=== PATIENT | male | born 1940 | race Caucasian/White ===

== ENCOUNTER → 2017-03-22 | Outpatient (CLI) | payer OTHER, BC ==
[~2017-03-22] VITALS: Ht 167.6 cm; Wt 78.9 kg
[~2017-03-22] MED LIST: CLONAZEPAM 0.50.5 M1 PO; COZAAR 50 MG TA50 M2 PO; FENOFIBRATE40 MG PO; FLOMAX0.4 MG PO; LIPITOR40 MG PO; LOPRESSOR50 PO; UNICOMPLEX M TA1 TA1 PO
--- NOTE | ~2017-03-22 | P ---
[facility] [place] [address] PROCEDURE REPORT Name: LYSSA OLSON Room #: REG [facility]#: [id number] Admission: 03/22/17 Attend Phys: Collin Huizar Discharge: Date of : 42 Report #: [id number] THIS REPORT FOR: //name// CC: Collin Rader MD DATE OF SERVICE: 03/22/2017 PROCEDURE PERFORMED: Flexible sigmoidoscopy with biopsies and tattoo. HISTORY OF PRESENT ILLNESS: The patient is a 76-year-old male who was seen by myself in the office on 01/01/2017 with change in bowel movements, blood in his stools at time, intermittent abdominal pain. He had a colonoscopy reportedly in 2014 in which polyps were removed. Plan is for flexible sigmoidoscopy. DESCRIPTION OF PROCEDURE: The risks and benefits of the procedure were explained to the patient, those risks including but not limited to bleeding, perforation, the risk of sedation. He understood these risks and gave informed consent. Sedation was given using propofol per anesthesia. Next, a digital rectal exam was initially performed, which was normal. Next, other than small external hemorrhoids, otherwise normal. Next, using a standard Simpleshowinon colonoscope, the scope was placed in the patient's anus and advanced under direct vision into the sigmoid colon, at which point a malignant appearing mass was noted at 20 cm. I was not able to pass the scope through this area, it was near obstructing. Multiple biopsies were obtained. The edges of the mass were tattooed. Multiple diverticula were also noted in this area. The scope was then slowly withdrawn. The rectal mucosa was normal. On retroflexion, internal hemorrhoids were noted, otherwise normal. The scope was then withdrawn and the procedure terminated. The patient tolerated the procedure well. IMPRESSION: 1. Malignant appearing mass in the distal sigmoid colon at 20 cm. Biopsies obtained. 2. Diverticulosis. 3. Internal and external hemorrhoids. RECOMMENDATIONS: 1. Await biopsy results. 2. We will proceed with a CAT scan of the abdomen and pelvis. 3. We will consult Surgery for resection in the near future. [facility] [address] [place] [address] PROCEDURE REPORT Name: YUDI OLSONJEN Delgado Room #: REG Sigrid Barrientos#: [id number] Admission: 03/22/17 Attend Phys: Collin Huizar Discharge: Date of : 42 Report #: [id number] Thank you for allowing me to participate in his care. <ELECTRONICALLY SIGNED> By: Collin Prieto MD 03/23/17 1022 1107 0234 Collin Prieto MD /nt
--- NOTE | ~2017-03-22 | S ---
[facility] [place] [address] SURGICAL PATH RPT PROCEDURE Name: SELVIN SOLARES GENE Room #: REG KULDIP Cuevas.#: [id number] Admission: 03/22/17 Date of : 42 Discharge: Report #: [id number] Path Case #: [id number] PATHOLOGY REPORT COLLECTION DATE: 03/22/2017 RECEIVED DATE: 03/22/2017 SUBMITTING PHYS: Dr. Collin Prieto OTHER PHYS: ADDENDUM REPORT (Order Date: 03/27/2017 15:24) ADDENDUM COMMENT: Per the [facility] Cancer Committee Protocol, mismatch repair (MMR) protein immunohistochemical staining was performed. Specimen: Formalin fixed paraffin embedded tissue Specimen ID: [id number], block A1 Reason for testing: To evaluate for evidence of defective mismatch repair proteins. Method: Immunohistochemical staining for the presence or absence of protein expression of one or more of the following MMR protein markers: MLH1, MSH2, MSH6 and PMS2. Tumor type: Invasive adenocarcinoma, moderately differentiated Results: MLH1 - Preserved MSH2 - Preserved MSH6 - Preserved PMS2 - Preserved Mismatch Repair Status: MMR Proficient (MMR-P) Interpretation: (MMR-P) All four MMR proteins are preserved within tumor cells. This suggests the presence of normal DNA mismatch repair function within the tumor and an observable defect in mismatch repair is not identified. The likelihood that this patient has an inherited germline mutation syndrome due to defective mismatch repair is reduced but not totally eliminated. If the patient has a strong personal or family history of HPNCC/Castaneda syndrome related cancers (colorectal, endometrial, gastric, ovarian, pancreatic, ureter/renal pelvis, biliary tract, brain, small bowel and [place] F syndrome), consider MSI testing by PCR methodology. Suggest clinical correlation and follow up. These test results are designed for screening purposes only and are useful tools in identifying cancer patients that are more likely to have Castaneda Syndrome related diagnoses. Tests should be interpreted in the context of clinical findings, family history and laboratory data. Abnormal IHC results for MMR protein expression are not considered diagnostic for Castaneda Syndrome. (ERASMOW:; 03/27/2017) [facility] [address] [place] [address] SURGICAL PATH RPT PROCEDURE Name: SEVLIN SOLARES GENE Room #: REG KULDIP Barrientos#: [id number] Admission: 03/22/17 Date of : 42 Discharge: Report #: [id number] Path Case #: [id number] Professional services performed by [facility] at [address] [place], [place] [address] Technical services performed by [facility] at [address] [place] [address], [address] [place] [address]. ELECTRONICALLY SIGNED BY: Treva Pagan M.D. DATE/TIME:03/28/2017 14:16 SPECIMEN(S) RECEIVED: A.Colon mass * * * * * * * * * * * * FINAL DIAGNOSIS: "Colon mass," biopsy: - INVASIVE ADENOCARCINOMA, MODERATELY DIFFERENTIATED. (SEE COMMENT) COMMENT: Deeper sections are performed. The case is co-reviewed with Dr. Maninder Hoyt. The case is discussed with Freida, nurse with Dr. Collin Prieto, on 03/25/17 at approximately 1:15 PM. (CLW:; 03/25/2017) PATHOLOGIST: Treva Pagan M.D. REPORT ELECTRONICALLY SIGNED BY: Treva Pagan M.D. DATE/TIME: 03/26/2017 13:19 * * * * * * * * * * * * GROSS PATHOLOGY: Received in formalin labeled "Selvin Solares BX of colon mass," are 3 segments of chi soft tissue measuring 1.2 x 0.4 x 0.3 cm in aggregate dimensions and ranging from 0.3 to 0.5 cm in maximum dimension. The specimen is submitted entirely in cassette A1. (TSD; 03/22/2017) CLINICAL HISTORY: Change in bowel habits, blood in stools INITIAL CPT CODE(S): A; 96180, 89821, 86578, 12416, 54883 Professional services performed by [facility] [address], [place], [place] [address] [place] [address] SURGICAL PATH RPT PROCEDURE Name: SELVIN SOLARES GENE Room #: REG KULDIP Barrientos#: [id number] Admission: 03/22/17 Date of : 42 Discharge: Report #: [id number] Path Case #: [id number] Technical services performed by [facility] at [address] [place] [address], [address], [place] [address]. [facility] [address] [place] [address] PHONE: [phone] DIRECTOR: Jason Bro M.D. * * * END OF REPORT * * *
== END | disposition home or self-care (01) ==
LOC: GI 07:11
DX: C18.9 Malignant neoplasm of colon, unspecified (principal); K64.4 Residual hemorrhoidal skin tags; K57.30 Diverticulosis of large intestine without perforation or abscess without bleeding; K64.8 Other hemorrhoids
CPT/HCPCS: 62110; 62900

== ENCOUNTER → 2017-03-26 | Outpatient (CLI) | payer OTHER, BC ==
[2017-03-26 09:41] LABS: CREATININE 0.9 mg/dL (0.7-1.3)
== END ==
LOC: CAT 09:01
PROVIDERS: Specialist
DX: K76.0 Fatty (change of) liver, not elsewhere classified (principal); K63.89 Other specified diseases of intestine; I77.811 Abdominal aortic ectasia

== ENCOUNTER → 2017-08-27 | Outpatient (CLI) | payer OTHER, BC ==
[~2017-08-27] MED LIST changes: +ASPIRIN325 PO; +HYDROCODON-ACE1 EAC7 PO; +NEURONTIN 300300 M1 PO; +PERCOCET PO; +SENOKOT-S1 TA2 PO
== END ==
LOC: RAD 07:39
DX: Z93.3 Colostomy status (principal)

== ENCOUNTER → 2018-04-01 | Outpatient (CLI) | payer OTHER, BC | LOC: ULTRA 09:41 | DX: I70.201 Unspecified atherosclerosis of native arteries of extremities, right leg (principal); I10 Essential (primary) hypertension; E78.5 Hyperlipidemia, unspecified ==

== ENCOUNTER 2018-06-26 05:44 | Inpatient (IN) | payer OTHER, BC ==
[2018-06-12 09:26] LABS: URINE BILIRUBIN NEGATIVE (Negative); URINE BLOOD TRACE (Negative); URINE CLARITY CLEAR; URINE COLOR YELLOW; URINE GLUCOSE-RANDOM* NEGATIVE (Negative); URINE KETONES NEGATIVE (Negative); URINE LEUKOCYTES 2+ (Negative); URINE NITRITE NEGATIVE (Negative); URINE PROTEIN (DIPSTICK) NEGATIVE (Negative); URINE SPECIFIC GRAVITY <= 1.005 (1.005-1.035); URINE UROBILINOGEN 0.2 E.U./dl (0.2-1.0)
[2018-06-12 09:27] LABS: HEMATOCRIT 42.9 % (42.0-52.0); HEMOGLOBIN 13.8 gm/dL (14.0-18.0); MCH 23.8 pg (26.0-34.0); MCHC 32.3 g/dL (28.0-37.0); MCV 73.7 fL (80.0-100.0); PLATELET COUNT 235 thou/uL (150-400); RBC 5.82 mil/uL (4.50-6.00); RDW 18.1 % (10.5-14.5); WBC 8.4 thou/uL (4.0-11.0)
[2018-06-12 09:39] LABS: INR 1.1
[2018-06-12 09:41] LABS: SQUAMOUS 0-3 Few /LPF (0-3)
[2018-06-12 09:42] LABS: ALBUMIN 3.7 g/dL (3.4-5.0); BACTERIA 1-9 Few /HPF (None Seen); CALCIUM 9.4 mg/dL (8.5-10.1); CASTS None Seen /LPF (None Seen); CREATININE 0.9 mg/dL (0.7-1.3); CRYSTALS None Seen /LPF (None Seen); POTASSIUM 4.3 mmol/L (3.5-5.1); TOTAL BILIRUBIN 0.7 mg/dL (<0.1-1.0); TOTAL PROTEIN 7.8 g/dL (6.4-8.2); URINE RBC None Seen /HPF (0-2); URINE WBC 6-15 Few /HPF (0-5)
[2018-06-12 09:52] LABS: ABSOLUTE NEUTROPHILS 4.6 thou/uL (1.4-8.2); ANISOCYTOSIS 1+; MICROCYTES 1+; PLATELET ESTIMATE NORMAL
--- NOTE | 2018-06-12 16:44 | EKG ---
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 Architect: garcia : 1940 Requested By: Alvarez Bautista Order Number: [id number] MD: Anselmo Ocampo Measurements Intervals [place] Rate: 49 P: 7 PA: 198 QRS: 18 QRSD: 139 T: 10 QT: 468 QTc: 423 Interpretive Statements Sinus bradycardia Right bundle branch block Compared to ECG 03/10/2018 06:36:26 No significant change was found Electronically Signed On 06-12-2018 16:44:25 SENIOR BIOINFORMATICS SCIENTIST by Anselmo Ocampo [email or web address] <ELECTRONICALLY SIGNED> By: Anselmo Ocampo MD, [facility] 06/12/18 1644 0929 8 Anselmo Ocampo MD, FACC /EPI
[~2018-06-26] VITALS: Ht 170.2 cm; Wt 83.5 kg
[~2018-06-26 05:44] MED LIST changes: +LUTEIN20 MG PO; +METAMUCIL1 EAC1 PO
[2018-07-11 09:50] LABS: HEMATOCRIT 43.6 % (42.0-52.0); HEMOGLOBIN 14.4 gm/dL (14.0-18.0); MCH 24.6 pg (26.0-34.0); MCV 74.5 fL (80.0-100.0); PLATELET COUNT 201 thou/uL (150-400); RBC 5.85 mil/uL (4.50-6.00); RDW 18.3 % (10.5-14.5); WBC 8.4 thou/uL (4.0-11.0)
[2018-07-11 10:04] LABS: URINE CLARITY CLEAR; URINE COLOR YELLOW; URINE SPECIFIC GRAVITY <= 1.005 (1.005-1.035)
[2018-07-11 10:04] LABS: ALBUMIN 3.6 g/dL (3.4-5.0); APTT 28.7 Seconds (24.5-32.8); CALCIUM 9.8 mg/dL (8.5-10.1); CREATININE 0.9 mg/dL (0.7-1.3); PROTIME 10.7 Seconds (9.3-11.4); TOTAL BILIRUBIN 0.6 mg/dL (<0.1-1.0); TOTAL PROTEIN 7.5 g/dL (6.4-8.2)
[2018-07-11 10:05] LABS: URINE BILIRUBIN NEGATIVE (Negative); URINE BLOOD NEGATIVE (Negative); URINE GLUCOSE-RANDOM* NEGATIVE (Negative); URINE KETONES NEGATIVE (Negative); URINE LEUKOCYTES-REFLEX NEGATIVE (Negative); URINE NITRITE-REFLEX NEGATIVE (Negative); URINE PROTEIN (DIPSTICK) NEGATIVE (Negative); URINE UROBILINOGEN 0.2 E.U./dl (0.2-1.0)
[2018-07-11 10:23] LABS: ABSOLUTE NEUTROPHILS 4.3 thou/uL (1.4-8.2); ANISOCYTOSIS 2+
--- NOTE | 2018-07-11 13:40 | EKG ---
[place] [address] [facility] [place] [address] ELECTROCARDIOGRAM REPORT Name: LYSSA OLSON [facility] Room #: PRE IN ..#: [id number] Admission: Attend Phys: Alvarez Bautista MD Discharge: Date of : 42 Report #: [id number] THIS REPORT FOR: //name// [facility] Test Date: 2018-07-11 Test Time: 10:02:05 Pat Name: LYSSA OLSON Department: Room: Gender: M Physical Therapy Professor: IKE ROGEL : 1940 Requested By: Alvarez Bautista Order Number: [id number] MD: Sigifredo Plata Measurements Intervals [place] Rate: 49 P: 4 [place]: 198 QRS: 3 QRSD: 150 T: 31 QT: 472 QTc: 427 Interpretive Statements Sinus bradycardia Right bundle branch block Baseline wander in lead(s) V3 Compared to ECG 06/12/2018 09:29:58 No significant changes Electronically Signed On 07-11-2018 13:40:34 PRESS ASSISTANT by Sigifredo Plata [email or web address] <ELECTRONICALLY SIGNED> By: Sigifredo Plata MD 07/11/18 1340 1002 1002 Sigifredo Plata MD /GEE
[2018-07-24] VITALS (27 sets, daily range): BP systolic 99–146; BP diastolic 44–108
[2018-07-25] VITALS (30 sets, daily range): BP systolic 102–155; BP diastolic 56–107
[2018-07-25 05:23] LABS: HEMATOCRIT 39.5 % (42.0-52.0); HEMOGLOBIN 12.6 gm/dL (14.0-18.0); MCH 23.7 pg (26.0-34.0); MCHC 31.8 g/dL (28.0-37.0); MCV 74.5 fL (80.0-100.0); RBC 5.31 mil/uL (4.50-6.00); RDW 17.5 % (10.5-14.5); WBC 15.9 thou/uL (4.0-11.0)
[2018-07-25 05:56] LABS: CREATININE 1.1 mg/dL (0.7-1.3); POTASSIUM 4.3 mmol/L (3.5-5.1)
--- NOTE | 2018-07-25 08:30 | O ---
[facility] [place] [address] OPERATIVE REPORT Name: LYSSA OLSON [facility] Room #: 246-P ADM IN M.R.#: [id number] Admission: 07/24/18 Attend Phys: Alvarez Bautista MD Discharge: Date of : 42 Report #: [id number] THIS REPORT FOR: //name// CC: Alvarez Rader DATE OF SERVICE: 07/24/2018 PREOPERATIVE DIAGNOSIS: Aortoiliac and iliofemoral occlusive disease. POSTOPERATIVE DIAGNOSIS: Aortoiliac and iliofemoral occlusive disease. OPERATION: Axillobifemoral bypass with right femoral endarterectomy. SURGEON: Alvarez Bautista MD. ANESTHESIA: General. INDICATIONS: The patient was sent to us by Dr. Villa. The patient has important lower extremity claudication (right worse than left) and severe aortoiliac occlusive disease. 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 FINDINGS AND TECHNIQUE: After general anesthesia was established, an incision was made below the right clavicle to expose the axillary artery. A separate incision was made in the right groin to expose the common deep and superficial femoral artery. A similar incision was performed on the left to expose the common deep and superficial femoral arteries. Tunnels were made between all of the incisions and then 10,000 units of heparin were given. An 8-mm PTFE axillobifemoral bypass graft was brought through the right axillary to groin tunnel and sewn in end-to-side fashion to the axillary artery. This anastomosis was tested and found to be satisfactory. The right femoral system including common deep and superficial femoral were severely calcified and I felt that the only way to make an anastomosis into it was to perform an endarterectomy. As such, a right common femoral endarterectomy was performed extending down into the profunda and superficial femoral arteries. These vessels were severely calcified and it was difficult to end the endarterectomy as the plaque seemed to extend indefinitely. A long arteriotomy was made for the endarterectomy and a long patch graft was [facility] [address] [place] [address] OPERATIVE REPORT Name: LYSSA OLSON [facility] Room #: 246-P ADM IN M.R.#: [id number] Admission: 07/24/18 Attend Phys: Alvarez Bautista MD Discharge: Date of : 42 Report #: [id number] used to close it. Flow was established through this limb of the graft and the other limb of the graft had been brought through the cross femoral tunnel. There was a nice soft area in the proximal deep femoral artery and this was used as our recipient site on the left. With flow established through all the bypass grafts, all of the anastomoses looked reasonable and hemostasis was satisfactory at this point of the operation. Protamine was given to reverse the heparin that was given at the outset and when hemostasis was satisfactory, the wounds were closed in layers. The patient was taken to the recovery area in satisfactory condition. Feet were pink at this point and distal Doppler signals were present. All counts reported as correct. <ELECTRONICALLY SIGNED> By: Alvarez Bautista MD 07/25/18 0830 1717 1749 Alvarez Bautista MD /nt
--- NOTE | 2018-07-25 18:06 | PATH ---
[facility] [address] [place] [address] PATHOLOGY RPT PROCEDURE Name: SELVIN SOLARES GENE Room #: 211-P [facility] IN M.R.#: [id number] Admission: 07/24/18 Date of : 42 Discharge: Report #: [id number] Path Case #: [id number] [facility] Accession Number: [id number] . 01 Material submitted: . RIGHT FEMORAL PLAQUE . 01 Clinical history: . PVD. . 02 Diagnosis: Right femoral plaque, femoral endarterectomy: - Calcified atherosclerotic plaque. . (IUV:mml; 07/25/2018) QLM/07/25/2018 . 02 Electronically signed: . Cristy Mathur MD, Pathologist NPI- [id number] . 01 Gross description: . Received in formalin labeled "Selvin Solares, right femoral plaque" is a 4.5 x 3.5 x 1.0 cm aggregate of chi-white rubbery and chi-yellow calcified soft tissue fragments. Approximately 95% of the specimen is comprised of calcification. Pre Press Manager sections are submitted in cassette A1 following decalcification. ([facility]; 07/24/2018) SYC/SYC . 02 Pathologist provided ICD-10: I70.201 . 02 CPT . [id number], [id number] Specimen Comment: A courtesy copy of this report has been sent to Specimen Comment: [phone], . Specimen Comment: Report sent to / DR LOPEZ Performed at: [address], [place], [place] [id number] MD Yamil Butt MD Phone: [phone] Performed at: [address] [id number] MD Cristy Mathur MD Phone: [phone]
[2018-07-26 00:15] VITALS: BP 117/61
[2018-07-26 04:30] VITALS: BP 112/58
[2018-07-26 08:05] VITALS: BP 122/66
[2018-07-26 09:28] LABS: HEMATOCRIT 36.8 % (42.0-52.0); HEMOGLOBIN 11.9 gm/dL (14.0-18.0); MCH 24.2 pg (26.0-34.0); MCHC 32.3 g/dL (28.0-37.0); MCV 74.9 fL (80.0-100.0); RBC 4.92 mil/uL (4.50-6.00); RDW 18.3 % (10.5-14.5); WBC 16.2 thou/uL (4.0-11.0)
[2018-07-26 09:35] LABS: CALCIUM 8.9 mg/dL (8.5-10.1); CREATININE 0.9 mg/dL (0.7-1.3); POTASSIUM 3.7 mmol/L (3.5-5.1)
[2018-07-26 11:40] VITALS: BP 138/57
[2018-07-26 16:40] VITALS: BP 122/66
[2018-07-26 19:39] VITALS: BP 125/90
[2018-07-27 04:53] VITALS: BP 124/57
[2018-07-27 08:00] VITALS: BP 138/59
[2018-07-27 11:42] LABS: HEMATOCRIT 34.9 % (42.0-52.0); HEMOGLOBIN 11.1 gm/dL (14.0-18.0); MCH 23.7 pg (26.0-34.0); MCHC 31.8 g/dL (28.0-37.0); MCV 74.3 fL (80.0-100.0); RBC 4.7 mil/uL (4.50-6.00); WBC 11.2 thou/uL (4.0-11.0)
[2018-07-27 11:57] LABS: CALCIUM 8.5 mg/dL (8.5-10.1); CREATININE 0.8 mg/dL (0.7-1.3); POTASSIUM 3.7 mmol/L (3.5-5.1)
[2018-07-27 12:15] VITALS: BP 100/79
[2018-07-27 16:25] VITALS: BP 117/70
[2018-07-27 20:32] VITALS: BP 138/71
[2018-07-28 04:50] VITALS: BP 134/81
[2018-07-28 08:00] VITALS: BP 168/75
[2018-07-28 12:20] VITALS: BP 150/77
[2018-07-28 14:56] VITALS: BP 150/77
== END 2018-07-28 15:50 | disposition home or self-care (01) | DRG 253 ==
LOC: PRE 05:44 → TBA 07-24 05:17 → ICU 07-24 05:17 → PRE 07-24 05:41 → ICU 07-24 16:47 → 2N 07-25 12:35 → ENTRNSPT 07-28 15:24 → EDTRNSPTSTS 07-28 15:26 → 2N 07-28 15:50
PROVIDERS: Family Medicine; ADMIT Surgery Vascular Surgery
DX: I74.09 Other arterial embolism and thrombosis of abdominal aorta (principal); I74.3 Embolism and thrombosis of arteries of the lower extremities; I74.5 Embolism and thrombosis of iliac artery; I73.9 Peripheral vascular disease, unspecified; M19.90 Unspecified osteoarthritis, unspecified site; I25.10 Atherosclerotic heart disease of native coronary artery without angina pectoris; Z79.899 Other long term (current) drug therapy; J44.9 Chronic obstructive pulmonary disease, unspecified; Z79.82 Long term (current) use of aspirin; Z87.891 Personal history of nicotine dependence; Z93.3 Colostomy status; Z95.1 Presence of aortocoronary bypass graft; Z85.038 Personal history of other malignant neoplasm of large intestine
CPT/HCPCS: 10078; 10081; 47375; 48888; 50010; 50101; 50386; 50455; 50953; 51751; 54118; 56524; 56526; 56527; 56528; 56668; 56760; 57092; 57093; 62110; 62900; 65020; 70005

== ENCOUNTER → 2020-02-17 | Outpatient (CLI) | payer OTHER, BC | LOC: SJCVCIMAG 09:15 | PROVIDERS: ATTEND Internal Medicine Cardiovascular Disease | DX: I71.4 Abdominal aortic aneurysm, without rupture (principal); I45.10 Unspecified right bundle-branch block; R94.31 Abnormal electrocardiogram [ECG] [EKG]; I49.9 Cardiac arrhythmia, unspecified; I74.5 Embolism and thrombosis of iliac artery; I25.10 Atherosclerotic heart disease of native coronary artery without angina pectoris; I10 Essential (primary) hypertension; E78.00 Pure hypercholesterolemia, unspecified; I73.9 Peripheral vascular disease, unspecified; Z79.899 Other long term (current) drug therapy; Z87.891 Personal history of nicotine dependence ==

== ENCOUNTER → 2020-04-25 | Outpatient (CLI) | payer OTHER, BC | LOC: SJCVCIMAG 07:25 | PROVIDERS: ATTEND Internal Medicine Cardiovascular Disease | DX: I65.23 Occlusion and stenosis of bilateral carotid arteries (principal); I45.10 Unspecified right bundle-branch block; I25.10 Atherosclerotic heart disease of native coronary artery without angina pectoris; I77.9 Disorder of arteries and arterioles, unspecified; Z79.899 Other long term (current) drug therapy; Z87.891 Personal history of nicotine dependence ==

== ENCOUNTER 2020-11-11 01:40 | Inpatient (IN) | payer OTHER, BC ==
[2020-11-11] VITALS (7 sets, daily range): BP systolic 125–171; BP diastolic 39–92
[~2020-11-11] VITALS: Ht 165.1 cm; Wt 73.9 kg
[2020-11-11 02:24] LABS: URINE BILIRUBIN NEGATIVE (Negative); URINE BLOOD 3+ (Negative); URINE CLARITY SL CLOUDY; URINE COLOR RED; URINE GLUCOSE-RANDOM* NEGATIVE (Negative); URINE KETONES TRACE (Negative); URINE PROTEIN (DIPSTICK) 3+ (Negative); URINE SPECIFIC GRAVITY 1.015 (1.005-1.035)
[2020-11-11 02:25] LABS: URINE LEUKOCYTES-REFLEX 1+ (Negative); URINE NITRITE-REFLEX POSITIVE (Negative)
[2020-11-11 02:36] LABS: BACTERIA-REFLEX 1-9 Few /HPF (None Seen); CASTS None Seen /LPF (None Seen); CRYSTALS None Seen /LPF (None Seen); MUCUS 0-3 Light strn/LPF (None Seen); SQUAMOUS 0-3 Few /LPF (0-3); URINE RBC >20 Many /HPF (NONE SEEN); URINE WBC-REFLEX 0-5 Rare /HPF (0-5)
[2020-11-11 02:50] LABS: ABSOLUTE NEUTROPHILS 5.9 thou/uL (1.4-8.2); BASOPHILS 0.5 % (0.0-2.0); EOSINOPHILS 3.3 % (0.0-3.0); HEMOGLOBIN 13.4 gm/dL (14.0-18.0); LYMPHOCYTES 20.1 % (24.0-44.0); MCH 26.5 pg (26.0-34.0); MCHC 32.6 g/dL (28.0-37.0); MCV 81.4 fL (80.0-100.0); MONOCYTES 12.1 % (1.0-8.0); PLATELET COUNT 214 thou/uL (150-400); RBC 5.04 mil/uL (4.50-6.00); RDW 15.1 % (10.5-14.5); WBC 9.2 thou/uL (4.0-11.0)
[2020-11-11 02:56] LABS: CALCIUM 9.2 mg/dL (8.5-10.1); CREATININE 0.9 mg/dL (0.7-1.3); POTASSIUM 3.5 mmol/L (3.5-5.1)
[2020-11-11 03:02] LABS: ALBUMIN 3.3 g/dL (3.4-5.0); TOTAL BILIRUBIN 0.4 mg/dL (0.2-1.0); TOTAL PROTEIN 7.8 g/dL (6.4-8.2)
[2020-11-11 03:12] LABS: APTT 26.8 Seconds (24.5-32.8); INR 1.07; PROTIME 11.6 Seconds (10.5-12.1)
--- NOTE | 2020-11-11 05:48 | NUR ---
DR COLE RETURNED CALL , AWARE OF CONSULT, REQUEST MADE, NO BLOOD THINNERS THIS MESSAGE WAS GIVEN TO SAVAGE RAMIRES
--- NOTE | 2020-11-11 14:13 | NUR ---
ASSUMED PT CARE THIS AM. DID ADMISSION THIS AM. PT IS ALERT & ORIENTED X4. PT HAS L AC SALINE LOCKED. PT USES URINAL. PT TOLERATED MED AND DIET WELL THIS AM. PT NO C/O OF PAIN, NAUSEA AND VOMITING. BLOODY URINE (DARK RED) NOTED AND VOIDING WELL. INFORMED ABOUT PT STATUS TO MD AND PA. LAST BM WAS TODAY. TALKED PT CHILDREN THIS AFTERNOON AND INFORMED THEM ABOUT PT. DID BLADDER SCAN THIS AM AND IT WAS 300 AND NOTIFIED PA. PT ON THE BED, BED ON THE LOWEST POSITION, SIDE RAILS UP, CALL LIGHT WITHIN REACH. WILL CONTINUE TO MONITOR PT. FOLLOW POC.
--- NOTE | 2020-11-11 15:35 | NUR ---
ASSESSMENT: CM REVIEWED CHART AND SPOKE WITH PATIENT. PT IS ALERT AND ORIENTED X4. PT REPORTS LIVING IN A HOUSE WITH HIS SON. PT REPORTS HAVING A STEP OR SO TO ENTER. PT REPORTS BEING FULLY INDEPENDENT WITH ADLS AND AMBULATION. PT WAS ADMITTED DUE TO HEMATURIA. PT IS TO HAVE OUTPATIENT CYSTOSCOPY. CM DISCUSSED WITH PATIENT. PT REPORTS HAVING HH IN THE PAST BUT REPORTS NO NEED FOR IT AT THIS TIME. PLANS ARE TO LIKELY DISCHARGE HOME TOMORROW. BEDSIDE RN ON PHONE WITH SON AND UPDATED.
--- NOTE | 2020-11-12 03:08 | NUR ---
PT IS VOIDING WELL PER URINAL. NO CLOTS OBSERVED. PT DENIES ANY PAIN, REPORTS JUST ALITTLE BURNING WHEN STARTING URINE STREAM. PT APPEARS TO BE IN A GOOD MOOD.HIS CHILDREN CALLED TO FIND OUT ABOUT HOW HE IS DOING.PT DENIES NAY DIZZINESS.HE APPEARS TO BE IN A GOOD MOOD.NO FURTHER CONCERNS.
[2020-11-12 07:32] VITALS: BP 124/59
--- NOTE | 2020-11-12 12:29 | NUR ---
ASSUMED PT CARE THIS AM. PT IS ALERT & ORIENTED X4. PT HAS IV SITE ON L AC SALINE LOCKED. PT HAS BEEN VOIDING WELL, DARK RED URINE AND NO CLOTS NOTED. PT DENIES PAIN, NAUSEA AND VOMITING. PT TOLERATED DIET AND MEDICATION WELL. INFORMED DR ABOUT DISCHARGE ORDER. AWAITING FOR DISCHARGE ORDER. PT DAUGHTER BEEN CALLING FOR AN UPDATE. INFORMED THE PLAN STATED BY UROLOGY AND DR. PT STATED WANTS TO GO HOME TODAY. INFORM PT THAT DR IS AWARE AND FINALIZE DISCHARGE ORDER. PT ON THE BED EATING, BED ON THE LOWEST POSITION, SIDE RAILS UP, CALL LIGHT WITHIN REACH. WILL CONTINUE TO MONITOR PT. FOLLOW POC.
[2020-11-12 12:49] VITALS: BP 124/59
--- OUTSIDE RECORDS SUMMARY | 2020-11-14 14:23 | XMS REPORT | Summary of Care ---
Demographics + + + | Address | [address] | | | [place] [address] | + + + | Home Phone | | + + + | Preferred Language | Unknown | + + + | Marital Status | | + + + | Hindu Affiliation | Unknown | + + + | Race | White | + + + | Ethnic Group | Not or | + + + Author + + + | Author | [facility] | + + + | Organization | [facility] | + + + | Address | Unknown | + + + | Phone | Unavailable | + + + Support + + +---------+ + | Name | Relationship | Address | Phone | + + +---------+ + | Maninder Solares | ECON | Unknown | | + + +---------+ + | None None | ECON | Unknown | | + + +---------+ + Care Team Providers + +------+ + | Care [employer] Specialist Name | Role | Phone | + +------+ + | Timothy Rader MD | PCP | | + +------+ + Encounter Details +------+---------+ + + + | Date | Type | Department | Care Team | Description | +------+---------+ + + + | / | Letter | [facility] | [facility] | | | 10/11 | (Out) | [facility] | MD [address] | | | [address] | [address], | | | | | [address] | [address] | | | | | [address] | [place] [address] | | | | | [place] [address] | [phone] | | | | | [phone] | [phone] | | | | | | (Fax) | | +------+---------+ + + + Allergies No Known Active Allergiesdocumented as of this encounter (statuses as of 11/14/2020) Medications + + +---------+--------+-----+-----+------+ | Medication | Sig | Dispens | Refill | Sta | End | Stat | | | | ed | s | rt | | us | | | | | | Randy | Randy | | | | | | | e | e | | + + +---------+--------+-----+-----+------+ | | Take 1 tablet by | | 0 | | | Acti | | Vitamins/Mineral | mouth daily. | | | | | ve | | s (THERA-M) TABS | | | | | | | + + +---------+--------+-----+-----+------+ | Psyllium | Take by mouth | | 0 | | | Acti | | (METAMUCIL FIBER | | | | | | ve | | PO) | | | | | | | + + +---------+--------+-----+-----+------+ | atorvastatin | TAKE 1 TABLET BY | 90 | 0 | 10/ | | Acti | | (LIPITOR) 10 MG | MOUTH EVERY DAY | tablet | | 18/ | | ve | | tablet | | | | 202 | | | | | | | | 0 | | | + + +---------+--------+-----+-----+------+ | clopidogrel | TAKE 1 TABLET BY | 90 | 3 | 11/ | | Acti | | (PLAVIX) 75 MG | MOUTH EVERY DAY | tablet | | 05/ | | ve | | tablet | | | | 202 | | | | | | | | 0 | | | + + +---------+--------+-----+-----+------+ | metoprolol | TAKE 1 TABLET BY | 180 | 3 | 01/ | | Acti | | tartrate | MOUTH TWICE A | tablet | | 21/ | | ve | | (LOPRESSOR) 50 | DAY | | | 202 | | | | MG tablet | | | | 1 | | | + + +---------+--------+-----+-----+------+ | losartan | Take 0.5 tablets | 45 | 2 | 01/ | | Acti | | (COZAAR) 100 MG | (50 mg total) | tablet | | 27/ | | ve | | tablet | by mouth daily | | | 202 | | | | | | | | 1 | | | + + +---------+--------+-----+-----+------+ | atorvastatin | TAKE 1 TABLET BY | 90 | 2 | 01/ | | Acti | | (LIPITOR) 40 MG | MOUTH EVERY DAY | tablet | | 28/ | | ve | | tablet | | | | 202 | | | | | | | | 1 | | | + + +---------+--------+-----+-----+------+ | | Take 1 tablet by | 90 | 3 | 05/ | | Acti | | carbidopa-levodo | mouth 3 (three) | tablet | | 17/ | | ve | | pa ER (Sinemet | times a day | | | 202 | | | | CR) 25-100 MG | | | | 1 | | | + + +---------+--------+-----+-----+------+ documented as of this encounter (statuses as of 11/14/2020) Active Problems + + + | Problem | Noted Date | + + + | BMI 28.0-28.9,adult | 02/11/2020 | + + + | BMI 30.0-30.9,adult | 08/07/2018 | + + + | Hx of CABG | 06/03/2018 | + + + | Encounter for pre-operative cardiovascular clearance | 06/03/2018 | + + + | Leg pain, right | 04/14/2018 | + + + | Carotid artery disease | 04/14/2018 | + + + + + | Overview: Duplex 04/2019: KENNY/LICA <40% moderate | | plaque. | + + + + + | Peripheral arterial disease | 04/09/2018 | + + + + + | Overview: Angio 03/2018: Fusiform infrarenal | | abdominal aortic aneurysm, left common iliac artery | | aneurysm 2.5 cm, and severe exophytic plaque | | throughout the right and left external iliac arteries | | and common femoral artery resulting in severe | | stenoses. Patient does see Dr. Bautista for possible | | aortobifemoral graft and bilateral common femoral | | artery endarterectomies including origins of both | | profunda femoral arteries. RSFA/RPop occlusion. LSFA | | 95%. Mid LPop 90%. Bilateral AT occlusions.06/2018: | | S/p R Axillary/Subclavian -> RCFA and R->L fem-fem | | bypass per Dr. Bautista. | + + + + + | Ventral hernia | 02/20/2018 | + + + | Colostomy in place | 08/19/2017 | + + + | Malignant neoplasm of sigmoid colon | 04/23/2017 | + + + | Diverticulosis of large intestine without hemorrhage | 04/23/2017 | + + + | Abdominal aortic aneurysm (AAA) without rupture | 11/08/2016 | + + + + + | Overview: CT 03/2017: 3.2 x 3.6 cm AAA. RCI 1.9 | | cm. LCI 2.0 cm.Duplex 03/2018: 3.3 x 3.9 cm | | AAA.Duplex 04/2019: 3.4 x 4.0 cm AAA. 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 LAD/Circ occ. | | Nondominant RCA moderate dz. MUNIZ->LAD mild dz. | | Radial->Diag patent. OM1 and OM2 bifurcating grafts | | patent. EF 55%. 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 | 10/19/2016 | + + + | Adenocarcinoma | | + + + documented as of this encounter (statuses as of 11/14/2020) Social History + + +---------+--------+------+ | Tobacco Use | Types | Packs/D | Years | Date | | | | ay | Used | | + + +---------+--------+------+ | Former Smoker | Cigarettes | | | | + + +---------+--------+------+ + +---+---+---+ | Smokeless | | | | | Tobacco: Never | | | | | Used | | | | + +---+---+---+ + + | Comments: quit 2006 | + + + + +---------+ + | Alcohol Use | Drinks/Week | oz/Week | Comments | + + +---------+ + | Yes | | | Rarely | + + +---------+ + + + + + | Financial Resource Strain | Answer | Date | | | | Recorded | + + + + | How hard is it for you to pay for | Not hard at all | 10/11/2020 | | the very basics like food, | | | | housing, medical care, and | | | | heating? | | | + + + + + + + + | Food Insecurity | Answer | Date | | | | Recorded | + + + + | Within the past 12 months, you | Never true | 10/11/2020 | | worried that your food would run | | | | out before you got money to buy | | | | more. | | | + + + + | Within the past 12 months, the | Never true | 10/11/2020 | | food you bought just didn't last | | | | and you didn't have money to get | | | | more. | | | + + + + + +--------+ + | Transportation Needs | Answer | Date | | | | Recorded | + +--------+ + | In the past 12 months, has lack of | No | 10/11/2020 | | transportation kept you from | | | | medical appointments or from | | | | getting medications? | | | + +--------+ + | In the past 12 months, has lack of | No | 10/11/2020 | | transportation kept you from | | | | meetings, work, or getting things | | | | needed for daily living? | | | + +--------+ + + + + | Sex Assigned at | Date Recorded | | | | + + + | Not on file | | + + + documented as of this encounter Last Filed Vital Signs Not on filedocumented in this encounter Plan of Treatment +------+---------+ + + + | Date | Type | Specialty | Care Team | Description | +------+---------+ + + + | 08/0 | Office | Cardiology | Cain, | | | 10/11 | Visit | | MD [address] | | [address] | | [address] | | | | | | [address] | | | | | | [place], [place] | | | | | | [address] | | | | | | [phone] | | | | | | [phone] | | | | | | (Fax) | | +------+---------+ + + + + +---------+-------+ + | Health | Due | Last | Comments | | Maintenance | Date | Done | | + +---------+-------+ + | COVID-19 VACCINE | | | | | | 960 | | | + +---------+-------+ + | (Pneumovax) | | | | | Pneumococcal | 007 | | | | Polysaccharide | | | | | Vaccine Age 65 | | | | | and Over | | | | + +---------+-------+ + | (Prevnar) | | | | | Pneumococcal | 007 | | | | Conjugate | | | | | Vaccine Age 65 | | | | | and over | | | | + +---------+-------+ + | INFLUENZA | | | | | VACCINE | 021 | | | + +---------+-------+ + documented as of this encounter Results Not on filedocumented in this encounter Insurance + +------+ +------+-------+---------+------+ | Payer | Bene | Subscrib | Effe | Phone | Address | Type | | | fit | er ID | ctiv | | | | | | Plan | | e | | | | | | / | | Date | | | | | | Grou | | s | | | | | | p | | | | | | + +------+ +------+-------+---------+------+ | MEDICARE | MEDI | [id number] | 10/22/ | | [place] | | | | CARE | [id number] | 2006 | | | | | | | | -Pre | | | | | | PART | | sent | | | | | | A | | | | | | | | AND | | | | | | | | B | | | | | | + +------+ +------+-------+---------+------+ | [place] | [place]BS | [id number] | 10/22/ | | | | | | | [phone] | 2006 | | | | | | [facility] | | -Pre | | | | | | | | sent | | | | | | [facility] | | | | | | + +------+ +------+-------+---------+------+ documented as of this encounter"
== END 2020-11-12 13:25 | disposition home or self-care (01) | DRG 699 ==
LOC: ER 01:40 → 4W 03:42 → EROBS 03:42 → 4W 05:20
PROVIDERS: Emergency Medicine; ADMIT Family Medicine; ATTEND Family Medicine
DX: N32.89 Other specified disorders of bladder (principal); E87.1 Hypo-osmolality and hyponatremia; I10 Essential (primary) hypertension; I73.9 Peripheral vascular disease, unspecified; R33.8 Other retention of urine; R16.0 Hepatomegaly, not elsewhere classified; N40.1 Benign prostatic hyperplasia with lower urinary tract symptoms; G20 Parkinson's disease; E78.5 Hyperlipidemia, unspecified; Z95.1 Presence of aortocoronary bypass graft; Z90.49 Acquired absence of other specified parts of digestive tract; Z85.038 Personal history of other malignant neoplasm of large intestine; Z79.899 Other long term (current) drug therapy; Z87.891 Personal history of nicotine dependence; R31.9 Hematuria, unspecified
CPT/HCPCS: 10045